=== PATIENT | female | born 1950 | race African-American/Black ===

== ENCOUNTER 2025-11-11 07:01 | Inpatient (IN) | payer OTHER, MEDICAID ==
[~2025-11-11] VITALS: Ht 170.2 cm; Wt 68.0 kg
[2025-11-11] VITALS (7 sets, daily range): BP systolic 119–172; BP diastolic 65–89; PULSE 75–89; RESP 16–19; TEMP 97.6–98.5; O2SAT 95–97
--- NOTE | 2025-11-11 07:15 | ED.PDOC ---
Musculoskeletal HPI Comments A 75 year-old female, with a Hx of HTN, presents to the ED with a chief complaint of spontaneous R hand numbness onset X4 months, since worsening. Patient states as of recently, the L hand has begun to feel numb as well. Patient reports a difficulty with gripping objects. Patient was seen at [facility] last night, and told she has Arthritis. Patient presents to the ED today for a second professional opinion. Upon arrival to the ED, patient has a BP of 220/86. Patient states she does not know what BP medication she takes, and has not taken medications in "awhile". Patient has no further complaints at this time and denies any trauma to the upper extremities, or further associated symptoms of weakness, chest pain, fatigue, fever, or palpitations. 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 History Family History Family History: Unknown Social History Smoker: Non-Smoker Alcohol: Denies ETOH Use Drugs: Denies Drug Use Lives In: Home Constitutional: denies: chills, diaphoresis, fatigue, fever, malaise, sweats, weakness, others EENTM: denies: blurred vision, double vision, ear bleeding, ear discharge, ear drainage, ear pain, ear ringing, eye pain, eye redness, hearing loss, mouth pain, mouth swelling, nasal discharge, nose bleeding, nose congestion, nose pain, photophobia, tearing, throat pain, throat swelling, voice changes, others Respiratory: denies: cough, hemoptysis, orthopnea, SOB at rest, shortness of breath, SOB with excertion, stridor, wheezing, others Cardiovascular: denies: chest pain, dizzy spells, diaphoresis, Dyspnea on exertion, edema, irregular heart beat, left arm pain, lightheadedness, palpitations, PND, syncope, others Gastrointestinal: denies: abdomen distended, abdominal pain, blood streaked bowels, constipated, diarrhea, dysphagia, difficulty swallowing, hematemesis, melena, nausea, poor appetite, poor fluid intake, rectal bleeding, rectal pain, vomiting, others Genitourinary: denies: abnormal vagina bleeding, burning, dyspareunia, dysuria, flank pain, frequency, hematuria, incontinence, pain, , vagina discharge, urgency, others Neurological: reports: numbness (Bilat Hand ); denies: dizziness, fainting, headache, left sided numbness, left sided weakness, paresthesia, pre-existing deficit, right sided numbness, right sided weakness, seizure, speech problems, tingling, tremors, weakness, others Musculoskeletal: denies: back pain, gout, joint pain, joint swelling, muscle pain, muscle stiffness, neck pain, others Integumetry: denies: bruises, change in color, change in hair/nails, dryness, laceration, lesions, lumps, rash, wounds, others Allergic/Immunocompromised: denies: Difficulty Healing, Frequent Infections, Hives, Itching, others Hematologic/Lymphatic: denies: anemia, blood clots, easy bleeding, easy bruising, swollen glands, others Endocrine: denies: excessive hunger, excessive sweating, excessive thirst, excessive urination, flushing, intolerance to cold, intolerance to heat, unexplained weight gain, unexplained weight loss, others Psychiatric: denies: anxiety, bipolar disorder, depression, hopeless, panic disorder, schizophrenia, sleepless, suicidal, others All Other Systems: Reviewed and Negative Physical Exam General Appearance: No Apparent Distress HEENT: Pharynx Normal Neck: Normal Inspection Respiratory: No Respiratory Distress Cardiovascular: No Edema Breast Exam: Deferred Gastrointestinal: No Organomegaly Genitalia: Deferred Pelvic: Deferred Rectal: Deferred Extremities: No pedal edema, Other (Weakness of the right hand) Neurologic: Normal Mood Cerebellar Function: NOT DONE Reflexes: NOT DONE Skin: Normal Color Lymphatic: NOT DONE Was a procedure done? Was a procedure done?: No Differential Diagnosis EXT Differential Diagnosis: Sprain, Arthritis X-Ray, Labs, Meds, VS Vital Signs Date Time Temp Pulse Resp B/P (MAP) Pulse Ox O2 Delivery O2 Flow Rate FiO2 11/11/25 08:19 201/87 11/11/25 07:53 73 11/11/25 07:44 75 95 Room Air* 0 21 11/11/25 07:37 97.3 80 16 213/92 (132) 95 97.3 11/11/25 07:37 78 18 Room Air 0 11/11/25 07:02 97.7 86 18 220/86 96 97.7 Lab Test 11/11/25 07:30 Range/Units White Blood Count 7.0 4.4-10.8 10^3/uL Red Blood Count 5.45 H 4.0-5.20 10^6/uL Hemoglobin 16.7 H 12.2-16.2 g/dL Hematocrit 49.7 H 36.0-46.0 % Mean Corpuscular Volume 91.3 80.0-100.0 fL Mean Corpuscular Hemoglobin 30.7 28.0-32.0 pg Mean Corpuscular Hemoglobin Concent 33.7 32.0-36.0 g/dL Red Cell Distribution Width 13.9 11.8-14.3 % Platelet Count 208 140-450 10^3/uL Mean Platelet Volume 8.1 6.9-10.8 fL Neutrophils (%) (Auto) 43.1 37.0-80.0 % Lymphocytes (%) (Auto) 44.6 10.0-50.0 % Monocytes (%) (Auto) 9.4 0.0-12.0 % Eosinophils (%) (Auto) 1.7 0.0-7.0 % Basophils (%) (Auto) 1.2 0.0-2.0 % Neutrophils # (Auto) 3.0 1.6-8.6 10 ^3/uL Lymphocytes # (Auto) 3.1 0.4-5.4 10 ^3/uL Monocytes # (Auto) 0.7 0-1.3 10 ^3/uL Eosinophils # (Auto) 0.1 0-0.8 10 ^3/uL Basophils # (Auto) 0.1 0-0.2 10 ^3/uL Nucleated Red Blood Cells 0.2 % Sodium Level 138 136-145 mmol/L Potassium Level 4.2 3.5-5.1 mmol/L Chloride Level 103 98-107 mmol/L Carbon Dioxide Level 27 20-31 mmol/L Anion Gap 8 5-15 Blood Urea Nitrogen 7 L 9-23 mg/dL Creatinine 0.73 0.550-1.02 mg/dL Glomerular Filtration Rate Calc 87 >90 mL/min BUN/Creatinine Ratio 9.6 L 10.0-20.0 Serum Glucose 134 H 74-106 mg/dL Calcium Level 9.6 8.7-10.4 mg/dL Troponin I High Sensitivity 4 </=34 ng/L B-Type Natriuretic Peptide 11.09 0-100 pg/mL Current Medications Medications (Trade) Dose Ordered Sig/Hai Route Start Time Stop Time Status Last Admin Hydralazine HCl (Apresoline Injection) 20 mg ONCE ONCE IV 11/11/25 08:00 11/11/25 08:11 DC 11/11/25 08:19 [place] [address] Ph: [phone] DIAGNOSTIC IMAGING Diagnostic Imaging Report : [id number] Signed PATIENT: MARISA STANFORD ACCT: [id number] UNIT: [id number] : 1950 LOC: ER ROOM / BED: / AGE / SEX: 75 / F ADM STATUS: REG ER SERVICE 0 ORDERING PHYSICIAN: MER FLOYD MD PROCEDURE(s): CXRP - CHEST PORTABLE REASON: htn ORDER NUMBER(s): [id number], ACCESSION NUMBER(s): [id number] CLINICAL INFORMATION: Hypertension. TECHNIQUE: Single AP portable chest radiograph was obtained. COMPARISON: None FINDINGS: Lungs: Hypoaeration of the lungs with flattening of the diaphragm, May suggest emphysematous changes. Lungs are otherwise clear. Cardiac: Heart size is within normal limits. Pulmonary vasculature: Unremarkable. Mediastinum/akilah: Moderate atherosclerotic calcification at the aortic arch. Bones: No acute osseous abnormality identified. Other: No other significant findings. IMPRESSION: 1. No evidence of acute disease in the chest. 2. Findings described above suggesting a emphysematous changes in the appropriate clinical setting. [address] [address] Ph: [phone] DIAGNOSTIC IMAGING Diagnostic Imaging Report : [id number] Signed PATIENT: MARISA STANFORD ACCT: [id number] UNIT: [id number] : 1950 LOC: ER ROOM / BED: / AGE / SEX: 75 / F ADM STATUS: REG ER SERVICE 0711 ORDERING PHYSICIAN: MER FLOYD MD PROCEDURE(s): HWOCT - HEAD WITHOUT CONTRAST REASON: htn, right hand weakness ORDER NUMBER(s): [id number], ACCESSION NUMBER(s): [id number] CLINICAL INFORMATION: Hypertension, right hand weakness. TECHNIQUE: Axial imaging was obtained through the brain without contrast. Coronal and sagittal reformatted images were obtained, reviewed, and stored. Images were reviewed in brain and bone windows. All CT scans at this medical facility are performed using dose modulation techniques as appropriate to a performed exam including the following: Automated exposure control was utilized; adjustment of the MA and/or KV according to patient size; and use of iterative reconstruction technique. CTDIvol = 53.23 mGy DLP = 852.27 mGy-cm COMPARISON: None FINDINGS: There is no acute intracranial hemorrhage. No mass effect or midline shift. The ventricles and sulci are within normal limits in size for age. Basal cisterns are patent. The calvarium is unremarkable. Paranasal sinuses and mastoid air cells are clear. IMPRESSION: No CT evidence of acute intracranial abnormality. Time of 1ST Reevaluation: 07:41 Reevaluation 1ST: Unchanged Patient Education/Counseling: Diagnosis, Treatment Family Education/Counseling: No Family Present Departure 1 Departure Time of Disposition: 08:32 (Patient presented with hypertension and symptoms concerning for hypertensive emergency. Patient is receiving iv blood pressure medications requiring intensive monitoring. Data: 1. I ordered and reviewed the result of at least 3 labs including a CBC, BMP, and Urinalysis. 2. I independently interpreted the following tests: CT Brain: Which appears benign. EKG which is Normal Sinus RhythmRisk:This patient has a high risk of morbidity due to further diagnostic testing or treatment and may suffer from an acute cardiac disorder. Workup reveals hypertensive emergency and patient should be admitted for further workup. and possible expert consultation. ) Impression: Primary Impression: Hypertensive urgency Additional Impression: Numbness of right hand Disposition: ADMITTED INPATIENT Admit to: Tele Condition: Guarded Critical Care Note Critical Care Time?: Yes Critical care comment: Concern for CVA Authorized and Performed by: Mer Floyd MD Total critical care time: Approximately 39 minutes Due to a high probability of clinically significant, life threatening deterioration, the patient required my highest level of preparedness to i ntervene emergently and I personally spent this critical care time directly and personally managing the patient. This critical care time included obtaining a history; examining the patient; pulse oximetry; ordering and review of studies; arranging urgent treatment with development of a management plan; evaluation of patient's response to treatment; frequent reassessment; and, discussions with other providers. This critical care time was performed to assess and manage the high probability of imminent, life-threatening deterioration that could result in multi-organ failure. It was exclusive of separately billable procedures and treating other patients and teaching time. Please see my other sections and the rest of the note for further information on patient assessment and treatment. Stability Stability form required: No Heart Score Heart Score: Heart Score Response (Comments) Value History N/A 0 EKG N/A 0 Age N/A 0 Risk Factors N/A 0 Troponin N/A 0 Total 0 I personally scribed for MER FLOYD MD ([email or web address]) on 11/11/25 at 07:15. Electronically submitted by Eliva Astudillo ([employer]). I personally scribed for MER FLOYD MD (GINARCO) on 11/11/25 at 07:20. Electronically submitted by Elvia Astudillo ([employer]). I personally scribed for MER FLOYD MD (GINARCO) on 11/11/25 at 07:34. Electronically submitted by Elvia Astudillo ([employer]). I personally scribed for MER FLOYD MD (GINARCO) on 11/11/25 at 08:13. Electronically submitted by Elvia Astudillo ([employer]). MER FLOYD MD Nov 11, 2025 07:15
[2025-11-11 07:41] LABS: Hematocrit 49.7 % (36.0-46.0); Hemoglobin 16.7 g/dL (12.2-16.2); Mean Corpuscular Hemoglobin 30.7 pg (28.0-32.0); Mean Corpuscular Volume 91.3 fL (80.0-100.0); Nucleated Red Blood Cells % 0.2 %
--- NOTE | 2025-11-11 07:42 | DVH ---
CLINICAL INFORMATION: Hypertension, right hand weakness. TECHNIQUE: Axial imaging was obtained through the brain without contrast. Coronal and sagittal reformatted images were obtained, reviewed, and stored. Images were reviewed in brain and bone windows. All CT scans at this medical facility are performed using dose modulation techniques as appropriate to a performed exam including the following: Automated exposure control was utilized; adjustment of the MA and/or KV according to patient size; and use of iterative reconstruction technique. CTDIvol = 53.23 mGy DLP = 852.27 mGy-cm COMPARISON: None FINDINGS: There is no acute intracranial hemorrhage. No mass effect or midline shift. The ventricles and sulci are within normal limits in size for age. Basal cisterns are patent. The calvarium is unremarkable. Paranasal sinuses and mastoid air cells are clear. IMPRESSION: No CT evidence of acute intracranial abnormality.
--- NOTE | 2025-11-11 07:43 | DVH ---
CLINICAL INFORMATION: Hypertension. TECHNIQUE: Single AP portable chest radiograph was obtained. COMPARISON: None FINDINGS: Lungs: Hypoaeration of the lungs with flattening of the diaphragm, May suggest emphysematous changes. Lungs are otherwise clear. Cardiac: Heart size is within normal limits. Pulmonary vasculature: Unremarkable. Mediastinum/akilah: Moderate atherosclerotic calcification at the aortic arch. Bones: No acute osseous abnormality identified. Other: No other significant findings. IMPRESSION: 1. No evidence of acute disease in the chest. 2. Findings described above suggesting a emphysematous changes in the appropriate clinical setting.
[2025-11-11 07:47] LABS: Chloride 103 mmol/L (98-107); Potassium 4.2 mmol/L (3.5-5.1); Sodium 138 mmol/L (136-145)
[2025-11-11 07:48] LABS: Anion Gap 8 (5-15); Carbon Dioxide 27 mmol/L (20-31)
[2025-11-11 07:49] LABS: Calcium 9.6 mg/dL (8.7-10.4)
[2025-11-11 07:53] LABS: BUN/Creatinine Ratio 9.6 (10.0-20.0)
[2025-11-11 08:07] LABS: Blood Urea Nitrogen 7 mg/dL (9-23); Glucose 134 mg/dL (74-106)
[2025-11-11] MEDS: hydrALAZINE HCL 20 MG/ML VL IV ONE (08:19)
[2025-11-11 08:41] LABS: Urine Protein, UAD Negative (Negative)
--- NOTE | 2025-11-11 08:51 | DVHHP2 ---
History of Present Illness Reason for Visit: right arm weakness History of Present Illness 75-year-old female with past medical history of hypertension, asthma, and shingles, and prior surgical history (unspecified), presents with right hand numbness that has been intermittent for 45 months. This morning, while attempting to put on items, the numbness acutely worsened, resulting in difficulty holding and grasping objects with the right hand. She also reports lower extremity weakness. She denies any recent falls or injuries, chest pain, or shortness of breath. The patient reports she has been out of her blood pressure medications for approximately five months. Per her grandson at bedside, her blood pressure at home was severely elevated to the 220s/120s. The grandson reports that the patient previously presented to [facility] around May for similar right hand weakness, underwent imaging and workup, and was discharged but never followed up with her primary care physician. In the ED, the patient received hydralazine for blood pressure control. Laboratory evaluation showed CBC unremarkable, sodium 134, and otherwise CMP unremarkable. CT scan of the head was negative. Chest X-ray was negative for acute process but showed emphysematous-type changes. The patient has a history of smoking and declines nicotine patch. Given persistent focal neurologic symptoms, uncontrolled hypertension, and concern for cervical or neurologic etiology, patient will be admitted for further neurologic evaluation, blood pressure management, and therapy assessment. Past Medical History See HPI above Past Surgical History See HPI above Family History Reviewed, non-contributory to the management of this case. Past Social History Smoker by history he states he did not meth two months ago he is currently homeless Review of Systems Constitutional: No: Fever, Chills, Sweats, Weakness, Malaise, Other Eyes: No: Pain, Vision change, Conjunctivae inflammation, Eyelid inflammation, Other, Redness ENT: No: Ear pain, Ear discharge, Nose pain, Nose discharge, Nose congestion, Mouth pain, Mouth swelling, Throat pain, Throat swelling, Other Respiratory: Shortness of breath, SOB with excertion; No: Cough, Dry, Wheezing, Hemoptysis, Pleuritic Pain, Sputum, Wheezing, Other Cardiovascular: Chest Pain; No: Palpitations, Orthopnea, Paroxysmal Noc. Dyspnea, Edema, Lt Headedness, Other Gastrointestinal: No: Nausea, Vomiting, Abdominal Pain, Diarrhea, Constipation, Melena, Hematochezia, Other Genitourinary: No Dysuria, No Frequency, No Incontinence, No Hematuria, No Retention, No Other Musculoskeletal: No: other, neck pain, shoulder pain, arm pain, back pain, hand pain, leg pain, foot pain Skin: No: Rash, Lesions, Jaundice, Bruising, Other Neurological: No: Weakness, Numbness, Incoordination, Change in speech, Confusion, Seizures, Other Allergies: Coded Allergies: Lisinopril (Verified Allergy, Unknown, 11/11/25) Exam Vital Signs Vital Signs Date Time Temp Pulse Resp B/P (MAP) Pulse Ox O2 Delivery O2 Flow Rate FiO2 11/11/25 08:19 201/87 11/11/25 07:53 73 11/11/25 07:44 95 Room Air* 0 21 11/11/25 07:37 97.3 16 97.3 General Appearance: Alert, Oriented X3, Cooperative, mild distress HEENT: Atraumatic, PERRLA, EOMI, Mucous membr. moist/pink Respiratory: Normal air movement (lung sounds throughout) Cardiovascular: Regular rate, Normal S1, Normal S2, No murmurs Abdominal: Normal bowel sounds, Soft, No tenderness, No hepatospenomegaly, No masses Extremities: No clubbing, No cyanosis, No edema, Normal pulses, No tenderness/swelling Skin: No rashes, No breakdown, No significant lesion Neuro: Normal gait, Normal speech, Strength at 5/5 X4 ext, Normal tone, Sensation intact, Cranial nerves 3-12 NL Psych/Mental Status: Mental status NL, Mood NL Labs/Xrays Chest x-ray shows opacities mild lower lobe infiltrates I reviewed labs, imaging CT scan abdomen pelvis, EKG and all diagnostic studies on this patient from ED records and the medical chart Labs Test 11/11/25 08:32 11/11/25 07:56 11/11/25 07:30 Range/Units White Blood Count 7.0 4.4-10.8 10^3/uL Red Blood Count 5.45 H 4.0-5.20 10^6/uL Hemoglobin 16.7 H 12.2-16.2 g/dL Hematocrit 49.7 H 36.0-46.0 % Mean Corpuscular Volume 91.3 80.0-100.0 fL Mean Corpuscular Hemoglobin 30.7 28.0-32.0 pg Mean Corpuscular Hemoglobin Concent 33.7 32.0-36.0 g/dL Red Cell Distribution Width 13.9 11.8-14.3 % Platelet Count 208 140-450 10^3/uL Mean Platelet Volume 8.1 6.9-10.8 fL Neutrophils (%) (Auto) 43.1 37.0-80.0 % Lymphocytes (%) (Auto) 44.6 10.0-50.0 % Monocytes (%) (Auto) 9.4 0.0-12.0 % Eosinophils (%) (Auto) 1.7 0.0-7.0 % Basophils (%) (Auto) 1.2 0.0-2.0 % Neutrophils # (Auto) 3.0 1.6-8.6 10 ^3/uL Lymphocytes # (Auto) 3.1 0.4-5.4 10 ^3/uL Monocytes # (Auto) 0.7 0-1.3 10 ^3/uL Eosinophils # (Auto) 0.1 0-0.8 10 ^3/uL Basophils # (Auto) 0.1 0-0.2 10 ^3/uL Nucleated Red Blood Cells 0.2 % Sodium Level 138 136-145 mmol/L Potassium Level 4.2 3.5-5.1 mmol/L Chloride Level 103 98-107 mmol/L Carbon Dioxide Level 27 20-31 mmol/L Anion Gap 8 5-15 Blood Urea Nitrogen 7 L 9-23 mg/dL Creatinine 0.73 0.550-1.02 mg/dL Glomerular Filtration Rate Calc 87 >90 mL/min BUN/Creatinine Ratio 9.6 L 10.0-20.0 Serum Glucose 134 H 74-106 mg/dL Calcium Level 9.6 8.7-10.4 mg/dL B-Type Natriuretic Peptide 11.09 0-100 pg/mL SEPSIS Sepsis Screen Date sepsis recognized/suspect: Nov 11, 2025 Time Sepsis recognized/suspect: 0749 Recent Procedure: No On Antibiotic Therapy: No Respiratory Rate >20: No Heart Rate >90: No Temp<36 C (96.8 F) or >38.3 C: No SBP <90 or MAP <65 mmHG: No New Acute Mental Status Change: No Is the patient on CPAP, BIPAP,: No Physician Orders Urinalysis (11/11/25 07:11) Chest Portable (11/11/25 07:11) Head Without Contrast (11/11/25 07:11) Electrocardigram (11/11/25 07:11) Troponin-I Hs (11/11/25 08:11) Troponin-I Hs (11/11/25 10:11) Electrocardigram (11/11/25 08:11) Electrocardigram (11/11/25 10:11) Vital Signs Date Time Temp Pulse Resp B/P (MAP) Pulse Ox O2 Delivery O2 Flow Rate FiO2 11/11/25 08:19 201/87 11/11/25 07:53 73 11/11/25 07:44 75 95 Room Air* 0 21 11/11/25 07:37 97.3 80 16 213/92 (132) 95 97.3 11/11/25 07:37 78 18 Room Air 0 11/11/25 07:02 97.7 86 18 220/86 96 97.7 Laboratory Tests Test 11/11/25 07:30 White Blood Count 7.0 10^3/uL (4.4-10.8) Medications Medications Dose Ordered Sig/Hai Route Start Time Stop Time Status Last Admin Dose Admin Hydralazine HCl 20 mg ONCE ONCE IV 11/11/25 08:00 11/11/25 08:11 DC 11/11/25 08:19 20 MG Assessment/Plan Assessment/Plan 75-year-old female admitted for worsening right hand numbness and weakness in the setting of uncontrolled hypertension, with concern for neurologic or cervical spine etiology, requiring inpatient workup, blood pressure control, and specialty consultation. acute Right hand numbness and weakness Symptoms present intermittently for 45 months, acutely worsened today CT head negative Order CT cervical spine Neurology consult fu recs Start gabapentin for neuropathic pain Neuro checks q4h for now Uncontrolled hypertension / hypertensive urgency Off BP medications for 5 months Home BP reportedly 220s/120s Hydralazine given in ED ordered cozaar for now Monitor BP closely acute Lower extremity weakness No fall or trauma Physical therapy consult for evaluation and safety acute Asthma / COPD exacerbation Chest X-ray shows emphysematous changes Start scheduled bronchodilator treatments Systemic steroids Monitor respiratory status Tobacco use Patient is a smoker Declines nicotine patch History of shingles No active lesions chronic problems Hypertension Asthma Possible COPD/emphysema History of shingles Tobacco use FEN / PPx Fluids: Maintain hydration Electrolytes: Monitor BMP Nutrition: Regular diet as tolerated DVT Prophylaxis: SCDs GI Prophylaxis: PPI while on steroids Disposition Admit to medicine for neurologic workup of right hand numbness/weakness, CT cervical spine, neurology consultation, blood pressure control, respiratory treatments for asthma/COPD flare, and physical therapy evaluation. Continue monitoring and adjust management based on product development consultant recommendations. Plan discussed with: Patient Date of Service: Nov 11, 2025 Billing Provider: MARY ALICE DE LA GARZA DNP Common Visit Codes: [id number] INP/OBS CARE (HIGH) MARY ALICE DE LA GARZA DNP Nov 11, 2025 08:51
[2025-11-11] MEDS ORDERED: MORPHINE SULFATE INJ 2 MG/ml SYRG IV PRN (10:30)
[2025-11-11] MEDS ORDERED: ALBUTEROL SULF 2.5 MG/0.5ML(0.5%) NEB SOLN NEB ONE (10:30)
[2025-11-11] MEDS ORDERED: DOCUSATE SOD 100 MG CAP PO PRN (10:30)
[2025-11-11] MEDS ORDERED: NITROGLYCERIN 0.4 MG SL TAB SL PRN (10:30)
[2025-11-11] MEDS ORDERED: ONDANSETRON HCL 4 MG/2 ML VIAL IV PRN (10:30)
[2025-11-11] MEDS ORDERED: IPRATROPIUM BROM 0.5 MG/2.5ML INH SOL NEB ONE (10:30)
[2025-11-11] MEDS: PANTOPRAZOLE 40 MG/10 ML VIAL INJ IV ONE (11:18)
[2025-11-11] MEDS: SODIUM CHLORIDE 0.9% 1,000 ML IV SCH (11:18)
--- NOTE | 2025-11-11 11:32 | DVH ---
EXAM: CT CERVICAL WITHOUT CONTRAST INDICATION: eval for right upper ext numbness and tingling EXAM DATE: 11/11/2025 10:54 AM COMPARISON: None TECHNIQUE: Multiple axial CT images of the cervical spine were obtained using bone algorithm. Axial and coronal reformatting was done. Bone and soft tissue windows were reviewed. Radiation Dose Information: CT Dose: CTDI volume is 23.39 mGy. Dose-length product is 444.69 mGy*cm FINDINGS: The cervical alignment is intact. No acute cervical spine fracture is identified. The vertebral body heights are intact. No suspicious osseous lesions are identified. Moderate multilevel degenerative changes throughout the cervical spine. There is no prevertebral soft tissue swelling. IMPRESSION: 1. No evidence of acute cervical spine fracture or traumatic malalignment. 2. Moderate multilevel degenerative changes throughout the cervical spine. Consider correlation with cervical spine MRI. All CT scans at this medical facility are performed using dose modulation techniques as appropriate to a performed exam including the following: Automated exposure control was utilized; adjustment of the MA and/or KV according to patient size; and use of iterative reconstruction technique.
[2025-11-11] MEDS ORDERED: IPRATROPIUM BROM 0.5 MG/2.5ML INH SOL NEB SCH (14:00)
[2025-11-11] MEDS ORDERED: ALBUTEROL SULF 2.5 MG/0.5ML(0.5%) NEB SOLN NEB SCH (14:00)
[2025-11-11] MEDS: methylPREDNISolone SOD SUCC 40 MG/ML VL IV SCH (14:31)
[2025-11-11] MEDS: LOSARTAN POTASSIUM 25 MG TAB PO ONE (17:05)
[2025-11-11] MEDS: hydroCHLOROthiazide 25 MG TAB PO ONE (17:06)
[2025-11-11] MEDS: GABAPENTIN 300 MG CAP PO SCH (21:34)
[2025-11-12] VITALS (10 sets, daily range): BP systolic 143–173; BP diastolic 69–76; PULSE 62–96; RESP 16–18; TEMP 97.4–98.7; O2SAT 94–99
[2025-11-12] MEDS: hydrALAZINE HCL 20 MG/ML VL IV PRN (05:37)
[2025-11-12 06:14] LABS: Hematocrit 48.2 % (36.0-46.0); Hemoglobin 16.3 g/dL (12.2-16.2); Mean Corpuscular Hemoglobin 30.8 pg (28.0-32.0); Mean Corpuscular Volume 91.1 fL (80.0-100.0); Nucleated Red Blood Cells % 0.1 %
[2025-11-12 06:29] LABS: Alanine Aminotransferase 17 U/L (7-40); Albumin 4.2 g/dL (3.2-4.8); Alkaline Phosphatase 72 U/L (46-116); Anion Gap 10 (5-15); BUN/Creatinine Ratio 12.2 (10.0-20.0); Calcium 9.7 mg/dL (8.7-10.4); Carbon Dioxide 26 mmol/L (20-31); Chloride 101 mmol/L (98-107); Potassium 4.1 mmol/L (3.5-5.1); Sodium 137 mmol/L (136-145); Total Protein 7.6 g/dL (5.7-8.2)
[2025-11-12 06:30] LABS: Bilirubin, Total 0.5 mg/dL (0.2-1.0); Blood Urea Nitrogen 9 mg/dL (9-23); Glucose 179 mg/dL (74-106)
[2025-11-12] MEDS: LOSARTAN POTASSIUM 25 MG TAB PO SCH (10:26)
[2025-11-12] MEDS: hydroCHLOROthiazide 25 MG TAB PO SCH (10:26)
[2025-11-12] MEDS: ACETAMINOPHEN 325 MG TAB PO ONE (10:27)
[2025-11-12] MEDS: ENOXAPARIN SOD 40 MG/0.4 ML SYRINGE SC SCH (10:27)
[2025-11-12] MEDS: PANTOPRAZOLE 40 MG/10 ML VIAL INJ IV SCH (10:27)
[2025-11-12] MEDS ORDERED: IPRATROPIUM BROM 0.5 MG/2.5ML INH SOL NEB SCH (12:15)
[2025-11-12] MEDS ORDERED: AZITHROMYCIN 250 MG TAB PO ONE (12:15)
--- NOTE | 2025-11-12 12:36 | DVHPNRES ---
Progress Note Date Seen: Nov 12, 2025 Resident Creating Document: HAKAN RUBALCAVA RESIDENT Medical Necessity Reason Pt with a Central, PICC or Fol: No Subjective Review of Systems Patient is 75 years old female with a past medical history of hypertension, COPD, not on any oxygen, asthma, shingles came with a complaint of tingling and numbness that has been going on for more than 1 week. As per patient yesterday she had dropped staff from her hand. Now she is also feeling numbness in the left upper extremity. Patient reported her blood pressure at home with the 220/120s. Patient reported she was not taking blood pressure medication regularly. On further inquiry patient reported she has chronic cough and wheezing due to COPD. Patient denied any chest pain/dysarthria/change in vision/dysphagia, fever, palpitation/leg swelling. On arrival patient's blood pressure was 220/86. EKG no acute ST-T wave changes, troponin I with a normal limit, BNP with a normal limit, urinalysis negative, chest x-ray blood draw from bilaterally, CT head negative, PMH-hypertension, COPD, not on any oxygen, asthma, shingles PSH- cyst in the back surgery Allergy- lisinopril Personal History/ Social History- smoke half a pack of cigarettes almost for 50 years, occasional alcoholic, denies any substance abuse, lives with son Cardiovascular- deny acute chest pain or palpitation Respiratory chronic cough and wheezing Gastrointestinal- denies any rectal bleeding, nausea or vomiting Musculoskeletal-denies acute joint swelling or tenderness or redness Neurological- bilateral upper extremity numbness Psychiatry- denies depression or SI or HI Skin- denies acute rash or purpura Patient was seen today at bedside, Labs and chart reviewed CT head negative Ordered ceftriaxone and doxycycline EKG QTC prolongation New changes in the EKG, ordered troponin I, ordered cardiology consult Ordered echo 2D LVEF 65%, No neurological deficit noted on physical exam Ordered x-ray cervical spine rule out cervical spondylosis/fracture Plan is to do outpatient MRI of cervical spine to rule out radiculopathy Objective vital signs Vital Sign Date Time Temp Pulse Resp B/P (MAP) Pulse Ox O2 Delivery O2 Flow Rate FiO2 11/12/25 10:26 159/73 11/12/25 09:00 97.8 62 18 95 97.8 11/12/25 08:00 Nasal Cannula* 2 28 Total Intake and Output 11/11/25 11/11/25 11/12/25 15:00 23:00 07:00 Intake Total 210 ml 650 ml 500 ml Balance 210 ml 650 ml 500 ml medications Current Medications Medications Dose Ordered Sig/Hai Route Start Time Stop Time Status Last Admin Dose Admin Ondansetron HCl 4 mg Q4HP PRN IV 11/11/25 10:30 Docusate Sodium 100 mg BIDPRN PRN PO 11/11/25 10:30 Enoxaparin Sodium 40 mg DAILY SC 11/12/25 10:00 11/12/25 10:27 40 MG Morphine Sulfate 2 mg Q4HPRN PRN IV 11/11/25 10:30 Nitroglycerin 0.4 mg Q5MINP PRN SL 11/11/25 10:30 Albuterol 2.5 mg Q4HR NEB 11/11/25 14:00 UNV Ipratropium [place] 0.5 mg Q4HR NEB 11/11/25 14:00 UNV Methylprednisolone Sodium Succinate 40 mg Q8HR IV 11/11/25 14:00 11/12/25 05:36 40 MG Pantoprazole Sodium 40 mg DAILY IV 11/12/25 10:00 11/12/25 10:27 40 MG Gabapentin 300 mg BID PO 11/11/25 22:00 11/12/25 10:27 300 MG Losartan Potassium 25 mg DAILY PO 11/12/25 10:00 11/12/25 10:26 25 MG Hydralazine HCl 10 mg Q6HP PRN IV 11/11/25 16:45 11/12/25 05:37 10 MG Ceftriaxone Sodium 50 ml @ 100 mls/hr DAILY@09 IV 11/12/25 12:15 Azithromycin 250 mg DAILY PO 11/13/25 10:00 Albuterol 2.5 mg Q6HR NEB 11/12/25 18:00 Amlodipine Besylate 5 mg DAILY PO 11/12/25 12:15 Ipratropium [place] 0.5 mg Q6HR NEB 11/12/25 18:00 Examination General examination- awake, alert, ordered HEENT- PEERLA, no acute nasal discharge Cardiovascular- S1-S2 audible, rate and rhythm regular, no murmur Respiratory- bilateral congested lungs, wheezing+ Gastrointestinal-nontender, bowel sound+. Nondistended Musculoskeletal-no acute joint swelling or tenderness or redness Lower extremity- no leg edema Neurological- cranial nerves intact, no acute dysarthria or dysphagia Psychiatry- denies depression or SI or HI Skin- no acute rash or purpura laboratory and microbiology Laboratory Tests 11/12/25 05:31 Test 11/12/25 05:31 Range/Units Serum Glucose 179 H 74-106 mg/dL Problem List/Assessment/Plan Problem List/Assessment/Plan Assessment and plan # bilateral upper extremity tingling and numbness Rule out acute stroke Suspected cervical radiculopathy/myelopathy -CT head negative -plan is to do MRI of the cervical spine to rule out cervical radiculopathy -Echo 2D LVEF 65% Ordered x-ray cervical spine to rule out spondylosis/fracture -plan is to do outpatient MRI of the cervical spine to rule out cervical radiculopathy # acute exacerbation of COPD -chest x-ray low-fat diaphragm -troponin I within normal limit so far -continue nebulization as prescribed -ordered methylprednisolone -ordered ceftriaxone and doxycycline # leukocytosis -likely due to steroid # hypertensive emergency -ordered amlodipine -continue losartan -monitor blood pressure # new onset change in EKG -ordered repeat troponin panel -ordered cardiology consult -pending echo 2D Goals of care, Code status full code ; discussed with >15 minutes PUD prophylaxis: Pantoprazole DVT prophylaxis: Lovenox Plan discussed with Dr. Glynn nursing staff, Total time spent on patient evaluation, chart review, assessment and plan, discussion discussion >35 minutes Plan discussed with: Patient, Other (RN) My Orders My Orders Orders - HAKAN RUBALCAVA RESIDENT Procedure Category Date Status Time Electrocardigram EKG 11/12/25 Logged 12:03 Ceftriaxone 1gm/50ml PHA 11/12/25 In Process (Rocephin) 12:15 Azithromycin Tablet PHA 11/13/25 In Process (Zithromax Tablet) 10:00 Albuterol Medneb PHA 11/12/25 In Process (Ventolin Medneb) 18:00 Amlodipine Tablet PHA 11/12/25 In Process (Norvasc Tablet) 12:15 Ipratropium Medneb PHA 11/12/25 In Process (Atrovent Medneb) 18:00 Visit Coding STANDARD RES Billing Provider: MEENU GLYNN MD Date of Service if different f: Nov 12, 2025 Common Visit Codes: 97322-IADSCMLNND INP/OBS CARE(HIGH) HAKAN RUBALCAVA RESIDENT Nov 12, 2025 12:36
[2025-11-12] MEDS: DOXYCYCLINE 100MG/100ML 100 ML IV SCH (13:53)
--- NOTE | 2025-11-12 17:58 | DVHSR ---
APPROVED REPORT EXAM: Two-dimensional and M-mode echocardiogram with Doppler and color Doppler. Blood Pressure: 165/74 mmHg INDICATION ?CHF RISK FACTORS Height: 5'7", Weight: 154 DIMENSIONS LVDd (3.8-5.7cm) LA (2D) 3.7 (1.9-4.0cm) Aortic Root (2.0-3.7cm) EF (%) 60.0 (55-70%) Rt. Atrium 3.2 (1.9-4.0cm) Asc. Aorta cm Mitral Valve Mitral Mitral Stenosis E wave 0.95m/s MV Mean GR. 3mmHg A wave 1.59m/s MV Peak GR. 9mmHg E/A ratio 0.6 2D MVA cm2 DECEL Time 168ms PRESS 1/2 Time 98ms IVRT ms Dop MVA 2.24cm2 Aortic Valve Aortic Valve Aortic Stenosis V1 1.17m/s AO Mean GR. 6mmHg V2 1.75m/s AO Peak GR. 12mmHg LVOT Diameter 1.8 (1.8-2.4cm) Doppler JEREMY 1.70cm2 Other Information Quality : Technically Limited Rhythm : Technically limited study due to body habitus. Conclusion MILD LVH AND MILD LV DIASTOLIC DYSFUNCTION LV EF IS 65% POSTERIOR MITRAL LEAFLET IS CALCIFIED CALCIFIED AORTIC LEAFLETS NORMAL RV FUNCTION NO EFFUSION
--- NOTE | 2025-11-12 18:31 | DVH ---
CLINICAL INDICATION: Spondylosis/radiculopathy/fracture TECHNIQUE: 4 radiographic views of the cervical spine were obtained. COMPARISON: None FINDINGS/IMPRESSION: Lateral film demonstrates C1 through C5. There are no compressed vertebra and. The prevertebral soft tissues appear normal. There appears to be some straightening of the normal cervical lordotic curve C1 through C5 is may be secondary to patient positioning or muscle spasm. If vertebral detail below C5 is of clinical concern recommend CT of the cervical spine. There is 1 additional image of the cervical spine which shows satisfactory alignment however image is severely rotated and bony detail is limited.
[2025-11-12] MEDS: ALBUTEROL SULF 2.5 MG/0.5ML(0.5%) NEB SOLN NEB SCH (19:00)
[2025-11-12] MEDS: IPRATROPIUM BROM 0.5 MG/2.5ML INH SOL NEB SCH (19:01)
--- NOTE | 2025-11-12 21:03 | ECG ---
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
--- NOTE | 2025-11-12 22:38 | DVHINCON2 ---
Date of service: Nov 12, 2025 Referring Physician Maribel Reason for Consultation Acute upper arm numbness and tingling History of Present Illness Ms. Cabrales is a 75 years old right-handed female with a history of hypertension, she came to the hospital on 11/11/2025 with a chief complaint of paresthesia in the extremities, she was admitted because of her blood pressure was very high. At this time, he is alert and fully oriented, she provided the following history She has intermittent tingling, numbness, pain in the whole hand and all the fingers since 06/2025, the symptoms are worse after using the hand, or showering her head, she also drops objects from hand, but she denies weakness She has intermittent tingling, numbness in the whole hand and all the fingers since the end of 09/2025, the symptoms are worse after using the hand Her blood pressure was extremely high in the emergency room, but she denies acute vision changes, she did not have but had headache after he came to the hospital WBC/HB/PLT/MCV, 11/11/2025: 7/16.7/208/95.3 BMP 11/12/2025: Unremarkable HGB A1c, 11/12/2025: 6.8 TSH, 11/12/2025: 0.29 Liver function tests, 09/12/2025: Unremarkable CT head, 11/11/2025: No CT evidence of acute intracranial abnormality CT C-spine, 11/11/25:1. No evidence of acute cervical spine fracture or tra umatic malalignment. 2. Moderate multilevel degenerative changes throughout the cervical spine. Consider correlation with cervical spine MRI Past Medical History Hypertension Past Surgical History Cyst resection from the back Family History: Patient reports no known family medical history. Family History Cancer Social History She smokes, but denies a history of drug/alcohol abuse Allergies: Coded Allergies: Lisinopril (Verified Allergy, Unknown, 11/11/25) Home Meds Unable to Obtain Active Prescriptions or Reported Meds Current Medications Current Medications Medications (Trade) Dose Ordered Sig/Hai Route PRN Reason Start Time Stop Time Status Last Admin Enoxaparin Sodium (Lovenox) 40 mg DAILY SC 11/12/25 10:00 11/12/25 10:27 Pantoprazole Sodium (Protonix) 40 mg DAILY IV 11/12/25 10:00 11/12/25 10:27 Losartan Potassium (Cozaar Tablet) 25 mg DAILY PO 11/12/25 10:00 11/12/25 10:26 Hydrochlorothiazide (hydroCHLOROthiazide TABLET) 12.5 mg DAILY PO 11/12/25 10:00 11/12/25 12:11 DC 11/12/25 10:26 Ceftriaxone Sodium 50 ml @ 100 mls/hr DAILY@09 IV 11/12/25 12:15 11/12/25 13:03 Azithromycin (Zithromax Tablet) 250 mg DAILY PO 11/13/25 10:00 11/12/25 12:41 DC Albuterol (Ventolin Medneb) 2.5 mg Q6HR NEB 11/12/25 18:00 11/12/25 19:00 Ipratropium [place] (Atrovent Medneb) 0.5 mg Q6HR NEB 11/12/25 12:15 11/12/25 12:17 DC Amlodipine Besylate (Norvasc Tablet) 5 mg DAILY PO 11/12/25 12:15 11/12/25 13:01 Ipratropium [place] (Atrovent Medneb) 0.5 mg Q6HR NEB 11/12/25 18:00 11/12/25 19:01 Doxycycline Hyclate 100 ml @ 50 mls/hr Q12H IV 11/12/25 12:30 11/12/25 13:53 Review of Systems As above, the other systems are negative Vital Signs Vital Signs Date Time Temp Pulse Resp B/P (MAP) Pulse Ox O2 Delivery O2 Flow Rate FiO2 11/12/25 21:00 98.3 89 16 143/76 (98) 96 98.3 11/12/25 20:00 Nasal Cannula* 2 28 Physical Exam GENERAL EXAM: General: the patient is well developed and nourished. No acute distress. HEENT: Normocephalic, neck is supple, no carotid bruits. No mass. RESPIRATORY: Normal respiratory effort with symmetrical lung expansion. Lungs clear to auscultation. CARDIOVASCULAR: Regular rate and rhythm with no murmurs. S1, S2. ABDOMEN: Soft, nontender, normal bowel sound MUSCULOSKELETAL EXAM: Tenderness to palpation in the left shoulder. No tenderness to palpation in the cervical spine. Very mild tenderness to palpation in both wrists NEUROLOGICAL: MENTAL STATUS: Awake and alert. Oriented to person, place, time and general circumstances. Able to give personal history SPEECH, LANGUAGE, HIGHER CORTICAL FUNCTION: no aphasia or dysathria. CRANIAL NERVES: #2: Intact visual gaytan to confrontation. The optic discs were sharp. #3,4,6: Pupils are equal, round and reactive. EOMs full and conjugate. #5: Facial sensation intact in all three divisions bilaterally. Mandibular strength intact. #7: Facial muscles symmetrical and strength intact. #8: Hearing grossly normal to voice. #9,10: Uvula and soft palate rise in the midline. Swallow and voice are normal. #11: Trapezius and sternomastoid strength intact bilaterally. #12: Tongue midline. No fasciculations or atrophy. SENSATION: Sensation to touch and pinprick is normal. MOTOR: Normal tone in the upper and lower extremity. Normal muscle bulk. No fasciculations. No abnormal movements or posturing. Muscle strength of the major groups in the upper extremities is 5/5. Muscle strength of the major groups in the lower extremities is 5/5. REFLEXES: Deep tendon reflexes are symmetrical. No pathological reflexes. CEREBELLAR/COORDINATION: Finger to nose and heel to miranda are normal bilaterally. GAIT/STATION: deferred. No Tinel's in the wrists and elbows Labs/Diagnostic Data Labs Test 11/12/25 17:45 11/12/25 06:51 11/12/25 05:51 11/12/25 05:31 Range/Units Troponin I High Sensitivity 9 </=34 ng/L White Blood Count 13.9 #H 4.4-10.8 10^3/uL Red Blood Count 5.29 H 4.0-5.20 10^6/uL Hemoglobin 16.3 H 12.2-16.2 g/dL Hematocrit 48.2 H 36.0-46.0 % Mean Corpuscular Volume 91.1 80.0-100.0 fL Mean Corpuscular Hemoglobin 30.8 28.0-32.0 pg Mean Corpuscular Hemoglobin Concent 33.8 32.0-36.0 g/dL Red Cell Distribution Width 13.5 11.8-14.3 % Platelet Count 240 140-450 10^3/uL Mean Platelet Volume 8.1 6.9-10.8 fL Neutrophils (%) (Auto) 84.1 H 37.0-80.0 % Lymphocytes (%) (Auto) 13.3 10.0-50.0 % Monocytes (%) (Auto) 2.4 0.0-12.0 % Eosinophils (%) (Auto) 0.0 0.0-7.0 % Basophils (%) (Auto) 0.2 0.0-2.0 % Neutrophils # (Auto) 11.7 H 1.6-8.6 10 ^3/uL Lymphocytes # (Auto) 1.8 0.4-5.4 10 ^3/uL Monocytes # (Auto) 0.3 0-1.3 10 ^3/uL Eosinophils # (Auto) 0 0-0.8 10 ^3/uL Basophils # (Auto) 0 0-0.2 10 ^3/uL Nucleated Red Blood Cells 0.1 % Sodium Level 137 136-145 mmol/L Potassium Level 4.1 3.5-5.1 mmol/L Chloride Level 101 98-107 mmol/L Carbon Dioxide Level 26 20-31 mmol/L Anion Gap 10 5-15 Blood Urea Nitrogen 9 9-23 mg/dL Creatinine 0.74 0.550-1.02 mg/dL Glomerular Filtration Rate Calc 85 >90 mL/min BUN/Creatinine Ratio 12.2 10.0-20.0 Serum Glucose 179 H 74-106 mg/dL Hemoglobin A1c 6.8 H <5.7 % A1C Calcium Level 9.7 8.7-10.4 mg/dL Magnesium Level 2.1 1.6-2.6 mg/dL Total Bilirubin 0.5 0.2-1.0 mg/dL Aspartate Amino Transferase (AST) 15 13-40 U/L Alanine Aminotransferase (ALT) 17 7-40 U/L Alkaline Phosphatase 72 46-116 U/L Total Protein 7.6 5.7-8.2 g/dL Albumin 4.2 3.2-4.8 g/dL Thyroid Stimulating Hormone (TSH) 0.29 L 0.55-4.78 uIU/mL Test 11/11/25 07:56 11/11/25 07:30 Range/Units Urine Color Light-yellow Yellow Urine Clarity Clear Clear Urine pH 5.5 5.0-9.0 Urine Specific [place]une 1.014 1.001-1.035 Urine Protein Negative Negative Urine Ketones Negative Negative Urine Blood Negative Negative /uL Urine Nitrite Negative Negative Urine Bilirubin Negative Negative Urine Urobilinogen Normal Negative mg/dL Urine Leukocyte Esterase Negative Negative /uL Urine RBC None seen 0 - 4 /hpf Urine Microscopic WBC < 1 0-5 /HPF Urine Squamous Epithelial Cells Few <5 /hpf Urine Bacteria None seen None Seen /hpf Urine Glucose Normal Normal mg/dL B-Type Natriuretic Peptide 11.09 0-100 pg/mL Assessment Paresthesia in both hands, likely she has bilateral carpal tunnel syndrome Hypertension emergency Plan/Recommendation Monitoring Supportive treatment Med surge Blood pressure control Address her bilateral hand paresthesia as outpatient Follow up with me on discharge More recommendation per clinical course This medical document was created using an electronic medical record system with [employer] dictation system. Although this document has been carefully reviewed, there may still be some phonetic and typographical errors. These areas are purely typographical due to imperfections of the software programs, and do not reflect any compromise in the patient's medical care. Plan discussed with: Patient, Other IVÁN AVILA MD Nov 12, 2025 22:38
--- NOTE | 2025-11-12 23:34 | DVHINCON2 ---
Date of service: Nov 12, 2025 Referring Physician Kasia Reason for Consultation HTN, EKG changes History of Present Illness This is a 75-year-old female with a past medical history of hypertension, asthma, and shingles, and prior surgical history (unspecified) who presents to the ED with right hand numbness that has been intermittent for 45 months. This morning, while attempting to put on items, the numbness acutely worsened, resulting in difficulty holding and grasping objects with the right hand. She also reports lower extremity weakness. She denies any recent falls or injuries, chest pain, or shortness of breath. The patient reports she has been out of her blood pressure medications for approximately five months. Per her grandson at bedside, her blood pressure at home was severely elevated to the 220s/120s. The grandson reports that the patient previously presented to [facility] around May for similar right hand weakness, underwent imaging and workup, and was discharged but never followed up with her primary care physician. CBC unremarkable. CT scan of the head was negative. Chest x-ray was negative for acute process but showed emphysematous-type changes. Patient was admitted to the hospital. I am asked to consult on this patient. Family History: Patient reports no known family medical history. Allergies: Coded Allergies: Lisinopril (Verified Allergy, Unknown, 11/11/25) Home Meds Unable to Obtain Active Prescriptions or Reported Meds Current Medications Current Medications Medications (Trade) Dose Ordered Sig/Hai Route PRN Reason Start Time Stop Time Status Last Admin Enoxaparin Sodium (Lovenox) 40 mg DAILY SC 11/12/25 10:00 11/12/25 10:27 Pantoprazole Sodium (Protonix) 40 mg DAILY IV 11/12/25 10:00 11/12/25 10:27 Losartan Potassium (Cozaar Tablet) 25 mg DAILY PO 11/12/25 10:00 11/12/25 10:26 Hydrochlorothiazide (hydroCHLOROthiazide TABLET) 12.5 mg DAILY PO 11/12/25 10:00 11/12/25 12:11 DC 11/12/25 10:26 Ceftriaxone Sodium 50 ml @ 100 mls/hr DAILY@09 IV 11/12/25 12:15 11/12/25 13:03 Azithromycin (Zithromax Tablet) 250 mg DAILY PO 11/13/25 10:00 11/12/25 12:41 DC Albuterol (Ventolin Medneb) 2.5 mg Q6HR NEB 11/12/25 18:00 11/12/25 19:00 Ipratropium [place] (Atrovent Medneb) 0.5 mg Q6HR NEB 11/12/25 12:15 11/12/25 12:17 DC Amlodipine Besylate (Norvasc Tablet) 5 mg DAILY PO 11/12/25 12:15 11/12/25 13:01 Ipratropium [place] (Atrovent Medneb) 0.5 mg Q6HR [facility] 11/12/25 18:00 11/12/25 19:01 Doxycycline Hyclate 100 ml @ 50 mls/hr Q12H IV 11/12/25 12:30 11/12/25 13:53 Review of Systems Constitutional: denies: chills, diaphoresis, fatigue, fever, malaise, sweats, weakness, others EENTM: denies: blurred vision, double vision, ear bleeding, ear discharge, ear drainage, ear pain, ear ringing, eye pain, eye redness, hearing loss, mouth pain, mouth swelling, nasal discharge, nose bleeding, nose congestion, nose pain, photophobia, tearing, throat pain, throat swelling, voice changes, others Respiratory: denies: cough, hemoptysis, orthopnea, SOB at rest, shortness of breath, SOB with excertion, stridor, wheezing, others Cardiovascular: denies: chest pain, dizzy spells, diaphoresis, Dyspnea on exertion, edema, irregular heart beat, left arm pain, lightheadedness, palpitat ions, PND, syncope, others Gastrointestinal: denies: abdomen distended, abdominal pain, blood streaked bow els, constipated, diarrhea, dysphagia, difficulty swallowing, hematemesis, melena, nausea, poor appetite, poor fluid intake, rectal bleeding, rectal pain, vomiting, others Genitourinary: denies: abnormal vagina bleeding, burning, dyspareunia, dysuria, flank pain, frequency, hematuria, incontinence, pain, , vagina discharge, urgency, others Neurological: reports: numbness (Bilat Hand ); denies: dizziness, fainting, headache, left sided numbness, left sided weakness, paresthesia, pre-existing deficit, right sided numbness, right sided weakness, seizure, speech problems, tingling, tremors, weakness, others Musculoskeletal: denies: back pain, gout, joint pain, joint swelling, muscle pain, muscle stiffness, neck pain, others Integumetry: denies: bruises, change in color, change in hair/nails, dryness, laceration, lesions, lumps, rash, wounds, others Allergic/Immunocompromised: denies: Difficulty Healing, Frequent Infections, Hives, Itching, others Hematologic/Lymphatic: denies: anemia, blood clots, easy bleeding, easy bruising, swollen glands, others Endocrine: denies: excessive hunger, excessive sweating, excessive thirst, excessive urination, flushing, intolerance to cold, intolerance to heat, unexplained weight gain, unexplained weight loss, others Psychiatric: denies: anxiety, bipolar disorder, depression, hopeless, panic disorder, schizophrenia, sleepless, suicidal, others All Other Systems: Reviewed and Negative Vital Signs Vital Signs Date Time Temp Pulse Resp B/P (MAP) Pulse Ox O2 Delivery O2 Flow Rate FiO2 11/12/25 21:00 98.3 89 16 143/76 (98) 96 98.3 11/12/25 20:00 Nasal Cannula* 2 28 Physical Exam GENERAL: Alert and oriented x 3. No acute distress. EYES: PERRL, EOMI. Anicteric. HENT: Moist mucous membranes. LUNGS: Clear to auscultation bilaterally. CARDIOVASCULAR: Regular rate and rhythm. ABDOMEN: Soft, nontender and nondistended. EXTREMITIES: No edema. NEUROLOGIC: No focal neurological deficits. SKIN: Warm, dry. Labs/Diagnostic Data Labs Test 11/12/25 17:45 11/12/25 06:51 11/12/25 05:51 11/12/25 05:31 Range/Units Troponin I High Sensitivity 9 </=34 ng/L White Blood Count 13.9 #H 4.4-10.8 10^3/uL Red Blood Count 5.29 H 4.0-5.20 10^6/uL Hemoglobin 16.3 H 12.2-16.2 g/dL Hematocrit 48.2 H 36.0-46.0 % Mean Corpuscular Volume 91.1 80.0-100.0 fL Mean Corpuscular Hemoglobin 30.8 28.0-32.0 pg Mean Corpuscular Hemoglobin Concent 33.8 32.0-36.0 g/dL Red Cell Distribution Width 13.5 11.8-14.3 % Platelet Count 240 140-450 10^3/uL Mean Platelet Volume 8.1 6.9-10.8 fL Neutrophils (%) (Auto) 84.1 H 37.0-80.0 % Lymphocytes (%) (Auto) 13.3 10.0-50.0 % Monocytes (%) (Auto) 2.4 0.0-12.0 % Eosinophils (%) (Auto) 0.0 0.0-7.0 % Basophils (%) (Auto) 0.2 0.0-2.0 % Neutrophils # (Auto) 11.7 H 1.6-8.6 10 ^3/uL Lymphocytes # (Auto) 1.8 0.4-5.4 10 ^3/uL Monocytes # (Auto) 0.3 0-1.3 10 ^3/uL Eosinophils # (Auto) 0 0-0.8 10 ^3/uL Basophils # (Auto) 0 0-0.2 10 ^3/uL Nucleated Red Blood Cells 0.1 % Sodium Level 137 136-145 mmol/L Potassium Level 4.1 3.5-5.1 mmol/L Chloride Level 101 98-107 mmol/L Carbon Dioxide Level 26 20-31 mmol/L Anion Gap 10 5-15 Blood Urea Nitrogen 9 9-23 mg/dL Creatinine 0.74 0.550-1.02 mg/dL Glomerular Filtration Rate Calc 85 >90 mL/min BUN/Creatinine Ratio 12.2 10.0-20.0 Serum Glucose 179 H 74-106 mg/dL Hemoglobin A1c 6.8 H <5.7 % A1C Calcium Level 9.7 8.7-10.4 mg/dL Magnesium Level 2.1 1.6-2.6 mg/dL Total Bilirubin 0.5 0.2-1.0 mg/dL Aspartate Amino Transferase (AST) 15 13-40 U/L Alanine Aminotransferase (ALT) 17 7-40 U/L Alkaline Phosphatase 72 46-116 U/L Total Protein 7.6 5.7-8.2 g/dL Albumin 4.2 3.2-4.8 g/dL Thyroid Stimulating Hormone (TSH) 0.29 L 0.55-4.78 uIU/mL Test 11/11/25 07:56 11/11/25 07:30 Range/Units Urine Color Light-yellow Yellow Urine Clarity Clear Clear Urine pH 5.5 5.0-9.0 Urine Specific [place] 1.014 1.001-1.035 Urine Protein Negative Negative Urine Ketones Negative Negative Urine Blood Negative Negative /uL Urine Nitrite Negative Negative Urine Bilirubin Negative Negative Urine Urobilinogen Normal Negative mg/dL Urine Leukocyte Esterase Negative Negative /uL Urine RBC None seen 0 - 4 /hpf Urine Microscopic WBC < 1 0-5 /HPF Urine Squamous Epithelial Cells Few <5 /hpf Urine Bacteria None seen None Seen /hpf Urine Glucose Normal Normal mg/dL B-Type Natriuretic Peptide 11.09 0-100 pg/mL Assessment Right hand numbness and weakness. Hypertensive urgency. Lower extremity weakness. COPD exacerbation. Tobacco use. History of shingles. Plan/Recommendation I agree with your ongoing assessment and care of plan. Echocardiogram. Amlodipine. IV antibiotics as ordered. DVT and GI prophylactics. IV Hydralazine for SBP >150. Losartan. Additional plan as per the hospital course. A total of 45 minutes was spent reviewing the patient record, examining the patient, making a diagnostic and therapeutic plan, discussing this plan with medical personnel, following up on diagnostic studies and following the patient for clinical stability excluding any and all procedures. At least 50% of this time was spent in direct, [id number] contact. Plan discussed with: Patient ELISSA GEORGE MD Nov 12, 2025 23:08
[2025-11-13] VITALS (10 sets, daily range): BP systolic 145–183; BP diastolic 72–81; PULSE 69–91; RESP 16–18; TEMP 97.6–98.2; O2SAT 94–99
[2025-11-13 06:53] LABS: Hematocrit 47.1 % (36.0-46.0); Hemoglobin 15.6 g/dL (12.2-16.2); Mean Corpuscular Hemoglobin 30.2 pg (28.0-32.0); Mean Corpuscular Volume 91.1 fL (80.0-100.0); Nucleated Red Blood Cells % 0.0 %
[2025-11-13 07:12] LABS: Chloride 98 mmol/L (98-107); Potassium 3.9 mmol/L (3.5-5.1); Sodium 137 mmol/L (136-145)
[2025-11-13 07:13] LABS: Anion Gap 10 (5-15); Calcium 9.6 mg/dL (8.7-10.4); Carbon Dioxide 29 mmol/L (20-31)
[2025-11-13 07:18] LABS: BUN/Creatinine Ratio 20.9 (10.0-20.0); Blood Urea Nitrogen 18 mg/dL (9-23); Magnesium 2.3 mg/dL (1.6-2.6)
[2025-11-13 07:22] LABS: Glucose 220 mg/dL (74-106)
--- NOTE | 2025-11-13 07:49 | ECG ---
[facility] Test Date: 2025-11-12 Test Time: 13:50:49 Pat Name: MARISA STANFORD Department: Room: 0220 A Gender: F Youth Leader: SALOMON : 1950 Requested By: HAKAN RUBALCAVA Order Number: [id number] Reading MD: Measurements Intervals [place] Rate: 84 P: 52 ME: 177 QRS: 45 QRSD: 85 T: 56 QT: 392 QTc: 464 Interpretive Statements Sinus rhythm Borderline ST elevation, anterior leads Please click the below link to view image of tracing.
--- NOTE | 2025-11-13 08:04 | ECG ---
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
[2025-11-13] MEDS ORDERED: AZITHROMYCIN 250 MG TAB PO SCH (10:00)
[2025-11-13] MEDS ORDERED: GABA-1250 PO (11:21)
[2025-11-13] MEDS ORDERED: PRED20TA2 PO (11:21)
[2025-11-13] MEDS ORDERED: AML5T PO (11:21)
[2025-11-13] MEDS ORDERED: LOSA-534 PO (11:21)
[2025-11-13] MEDS ORDERED: DOXY1CAP58 PO (11:21)
[2025-11-13] MEDS: LOSARTAN POTASSIUM 25 MG TAB PO ONE (12:02)
[2025-11-13 12:16] LABS: Free T3 2.63 pg/mL (2.3-4.2)
[2025-11-13 12:17] LABS: Free T4 (Free Thyroxine) 1.03 ng/dL (0.89-1.76)
[2025-11-13] MEDS ORDERED: ALBUAER3 IN (13:20)
--- NOTE | 2025-11-13 13:55 | DVHDSRES ---
Discharge Summary Date of Admission Resident Creating Document: LIZBETH PAIGE RESIDENT Nov 11, 2025 at 10:25 Date of Discharge: Nov 13, 2025 Admitting Diagnosis Suspected cervical radiculopathy Labs/Diagnostic Data: Laboratory Results Test 11/13/25 05:08 11/12/25 17:45 11/12/25 06:51 11/12/25 05:51 White Blood Count 20.5 10^3/uL (4.4-10.8) Red Blood Count 5.17 10^6/uL (4.0-5.20) Hemoglobin 15.6 g/dL (12.2-16.2) Hematocrit 47.1 % (36.0-46.0) Mean Corpuscular Volume 91.1 fL (80.0-100.0) Mean Corpuscular Hemoglobin 30.2 pg (28.0-32.0) Mean Corpuscular Hemoglobin Concent 33.2 g/dL (32.0-36.0) Red Cell Distribution Width 13.6 % (11.8-14.3) Platelet Count 246 10^3/uL (140-450) Mean Platelet Volume 8.5 fL (6.9-10.8) Neutrophils (%) (Auto) 88.7 % (37.0-80.0) Lymphocytes (%) (Auto) 8.1 % (10.0-50.0) Monocytes (%) (Auto) 3.1 % (0.0-12.0) Eosinophils (%) (Auto) 0.0 % (0.0-7.0) Basophils (%) (Auto) 0.1 % (0.0-2.0) Neutrophils # (Auto) 18.2 10 ^3/uL (1.6-8.6) Lymphocytes # (Auto) 1.7 10 ^3/uL (0.4-5.4) Monocytes # (Auto) 0.6 10 ^3/uL (0-1.3) Eosinophils # (Auto) 0 10 ^3/uL (0-0.8) Basophils # (Auto) 0 10 ^3/uL (0-0.2) Nucleated Red Blood Cells 0.0 % Sodium Level 137 mmol/L (136-145) Potassium Level 3.9 mmol/L (3.5-5.1) Chloride Level 98 mmol/L (98-107) Carbon Dioxide Level 29 mmol/L (20-31) Anion Gap 10 (5-15) Blood Urea Nitrogen 18 mg/dL (9-23) Creatinine 0.86 mg/dL (0.550-1.02) Glomerular Filtration Rate Calc 71 mL/min (>90) BUN/Creatinine Ratio 20.9 (10.0-20.0) Serum Glucose 220 mg/dL (74-106) Calcium Level 9.6 mg/dL (8.7-10.4) Magnesium Level 2.3 mg/dL (1.6-2.6) Troponin I High Sensitivity 9 ng/L (</=34) Vitamin B12 Level 429 pg/mL (211-911) Folic Acid 13.42 ng/mL (>5.38) Free Thyroxine (T4) Calculated 1.03 ng/dL (0.89-1.76) Free Triiodothyronine (T3) pg/mL 2.63 pg/mL (2.3-4.2) Vitamin D 25-Hydroxy 12.0 ng/mL (30.0-100) Test 11/12/25 05:31 11/11/25 07:56 11/11/25 07:30 Hemoglobin A1c 6.8 % A1C (<5.7) Total Bilirubin 0.5 mg/dL (0.2-1.0) Aspartate Amino Transferase (AST) 15 U/L (13-40) Alanine Aminotransferase (ALT) 17 U/L (7-40) Alkaline Phosphatase 72 U/L (46-116) Total Protein 7.6 g/dL (5.7-8.2) Albumin 4.2 g/dL (3.2-4.8) Thyroid Stimulating Hormone (TSH) 0.29 uIU/mL (0.55-4.78) Urine Color Light-yellow (Yellow) Urine Clarity Clear (Clear) Urine pH 5.5 (5.0-9.0) Urine Specific [place] 1.014 (1.001-1.035) Urine Protein Negative (Negative) Urine Ketones Negative (Negative) Urine Blood Negative /uL (Negative) Urine Nitrite Negative (Negative) Urine Bilirubin Negative (Negative) Urine Urobilinogen Normal mg/dL (Negative) Urine Leukocyte Esterase Negative /uL (Negative) Urine RBC None seen /hpf (0 - 4) Urine Microscopic WBC < 1 /HPF (0-5) Urine Squamous Epithelial Cells Few /hpf (<5) Urine Bacteria None seen /hpf (None Seen) Urine Glucose Normal mg/dL (Normal) B-Type Natriuretic Peptide 11.09 pg/mL (0-100) Other Laboratory Tests 11/13/25 05:08 Brief Hx & Hospital Course: 74-year-old female with a past medical history of hypertension, COPD, asthma, shingles came in with a chief complaint of tingling and numbness that has been ongoing for more than 1 week, with high blood pressure 220/1 20s. Patient was given amlodipine 5 mg and losartan 25 mg and blood pressure was monitored during her hospitalization. For tingling and numbness we ruled out acute stroke and CT head was done which was negative. CT scan of the cervical region without contrast showed no evidence of acute cervical spine fracture or traumatic malalignment. Moderate multilevel degenerative changes throughout the cervical spine was noted and Neurology was consulted. Neurology suggested this could be possibly carpal tunnel syndrome and an outpatient MRI has been suggested which the patient needs to follow up with Neurology. Echo shows ejection fraction of 65%. patient also had acute exacerbation of COPD seen on chest x-ray with a low flat diaphragm. Troponins were within normal limits and we gave the patient nebulizations. Patient also was given methylprednisolone daily and IV antibiotics doxycycline and ceftriaxone was continued. Due to the steroid patient also had leukocytosis which was monitored. Due to new onset change in EKG troponin levels were repeated which were normal and Cardiology was consulted. Echo was done which showed ejection fraction 65% with mild diastolic dysfunction. We increased the patient's antihypertensive medication amlodipine from 5-10 mg. Patient is feeling much better and is stable for discharge. We have counseled her that she is to take her antihypertensive medications amlodipine 10 mg and that losartan 50 mg is to be continued as well. Patient needs to take 5 days of prednisolone 40 mg for her COPD and doxycycline 100 mg twice a day for 5 more days as well. Since patient reported running out of albuterol medication , inhaler albuterol PRN has been prescribed for her. Patient and family have communicated understanding and patient is to follow up with the primary care physician in 1 week as well as Neurology for outpatient MRI. Patient is being discharged. Pt is lying on bed General Appearance: Alert, Oriented X3, Cooperative, Not in acute distress HEENT: Atraumatic, Mucous membranes moist/pink Respiratory: Clear to auscultation, Normal air movement, No added sounds Cardiovascular: Regular rate, Normal S1, Normal S2, No murmurs Abdominal: Active bowel sounds, Soft, no distention, no tenderness Extremities: No edema, Normal pulses, No tenderness/swelling Skin: No Significant rash, except past surgical scars Neuro: Normal speech, sensorimotor deficits none Psych/Mental Status: Mental status NL, Mood NL Nurse was there as head of talent management during examination Operations or Procedures Chest x-ray IMPRESSION: 1. No evidence of acute disease in the chest. 2. Findings described above suggesting a emphysematous changes in the appropriate clinical setting. CT head without contrast IMPRESSION: No CT evidence of acute intracranial abnormality. cervical CT without contrast IMPRESSION: 1. No evidence of acute cervical spine fracture or traumatic malalignment. 2. Moderate multilevel degenerative changes throughout the cervical spine. Consider correlation with cervical spine MRI. All CT scans at this medical facility are performed using dose modulation techniques as appropriate to a performed exam including the following: Automated exposure control was utilized; adjustment of the MA and/or KV according to patient size; and use of iterative reconstruction technique. PROCEDURE(s): CERV2 - CERVICAL SPINE 3V REASON: Spondylosis/radiculopathy/fracture ORDER NUMBER(s): [id number], ACCESSION NUMBER(s): [id number] FINDINGS/IMPRESSION: Lateral film demonstrates C1 through C5. There are no compressed vertebra and. The prevertebral soft tissues appear normal. There appears to be some straightening of the normal cervical lordotic curve C1 through C5 is may be secondary to patient positioning or muscle spasm. If vertebral detail below C5 is of clinical concern recommend CT of the cervical spine. There is 1 additional image of the cervical spine which shows satisfactory alignment however image is severely rotated and bony detail is limited. Condition at Discharge: Stable Final Diagnosis/Problems List #Acute exacerbation of COPD # suspected carpal tunnel syndrome #hypertensive emergency #Ruled out acute stroke #Suspected cervical radiculopathy/myelopathy #reactive leukocytosis Discharge Disposition: Home Discharge Instruct/Medications Diet: Consistent carbohydrate, Cardiac 2g Na,low cholest Activity: No Restrictions, As Tolerated Follow Up/Referral: PCP Cardiology Medications: Doxycycline 100 mg 2 times daily for 5 days prednisolone 40 mg daily once for 5 days Losartan 50 mg daily 1 times Amlodipine 10 mg daily 1 time Scheduled Amlodipine Besylate (Norvasc Tablet), 10 MG PO DAILY Doxycycline (Monohydrate) (Doxycycline), 100 MG PO BID Gabapentin (Gabapentin), 300 MG PO BID Losartan Potassium (Losartan Potassium), 50 MG PO DAILY Prednisone (Prednisone), 40 MG PO DAILY Scheduled PRN Albuterol Sulfate (Ventolin Mdi), 90 MCG IN PRN PRN Discharge Statement: "Patient was advised to return to the ER or call 911 if any headaches, dizziness, shortness of breath, chest pain, abdominal pain, bleeding, fevers, or worsening of medical condition. Patient was counseled about treatment plan, medications, possible side effects, patientverbalized understanding. All questions were answered to the best of my ability. This discharge took greater then 30 minutes in planning, reviewing documentation, counseling the patient, and discussing with other team members." ASSESSMENT ASSESSMENT Assessment Acute exacerbation of COPD Bilateral upper extremity tingling and numbness likely carpal tunnel Visit Coding STANDARD RES Billing Provider: MEENU HIGGINS MD Date of Service if different f: Nov 13, 2025 Common Visit Codes: 24834-KYW/OBS DISCH DAY >30min LIZBETH PAIGE RESIDENT Nov 13, 2025 13:55 MEENU HIGGINS MD Nov 14, 2025 18:47
--- NOTE | 2025-11-14 01:02 | DVHPN2 ---
Progress Note - Dictate Date Seen: Nov 13, 2025 Medical Necessity Reason Pt with a Central, PICC or Fol: No Subjective Patient was seen and evaluated in follow up. No overnight events. Echocardiogram. shows LV EF of 65%. Patient is cardiac stable for discharge. Telemetry reviewed. vital signs Vital Sign Date Time Temp Pulse Resp B/P (MAP) Pulse Ox O2 Delivery O2 Flow Rate FiO2 11/13/25 15:56 98.1 78 17 145/74 (97) 96 98.1 11/13/25 11:19 Room Air* 0 21 21 Total Intake and Output 11/13/25 11/13/25 11/14/25 15:00 23:00 07:00 Intake Total 150 ml Balance 150 ml medications Current Medications Medications Dose Ordered Sig/Hai Route Start Time Stop Time Status Last Admin Dose Admin Albuterol 2.5 mg Q4HR NEB 11/11/25 14:00 UNV Ipratropium [place] 0.5 mg Q4HR NEB 11/11/25 14:00 UNV objective GENERAL: Alert and oriented x 3. No acute distress. EYES: PERRL, EOMI. Anicteric. HENT: Moist mucous membranes. LUNGS: Clear to auscultation bilaterally. CARDIOVASCULAR: Regular rate and rhythm. ABDOMEN: Soft, nontender and nondistended. EXTREMITIES: No edema. NEUROLOGIC: No focal neurological deficits. SKIN: Warm, dry. laboratory and microbiology Laboratory Tests 11/13/25 05:08 Test 11/13/25 05:08 Range/Units Serum Glucose 220 H 74-106 mg/dL Problem List Right hand numbness and weakness. Hypertensive urgency. Lower extremity weakness. COPD exacerbation. Tobacco use. History of shingles. Assessment/Plan Continued all current supportive medical care. Amlodipine, Losartan. IV antibiotics as ordered. DVT and GI prophylactics. IV Hydralazine for SBP >150. Additional plan as per the hospital course. Plan discussed with: Patient ELISSA GEORGE MD Nov 14, 2025 01:02
== END 2025-11-13 16:27 | disposition home or self-care (01) | DRG 74 ==
LOC: ER 07:01 → OVERFLOW 10:25 → CENTRAL 15:09
PROVIDERS: ADMIT Internal Medicine Geriatric Medicine; ATTEND Internal Medicine Geriatric Medicine
DX: G56.03 Carpal tunnel syndrome, bilateral upper limbs (principal); G95.89 Other specified diseases of spinal cord; I16.1 Hypertensive emergency; J44.1 Chronic obstructive pulmonary disease with (acute) exacerbation; J45.901 Unspecified asthma with (acute) exacerbation; F17.200 Nicotine dependence, unspecified, uncomplicated; Z86.19 Personal history of other infectious and parasitic diseases; T38.0X5A Adverse effect of glucocorticoids and synthetic analogues, initial encounter; Z79.899 Other long term (current) drug therapy; Y92.89 Other specified places as the place of occurrence of the external cause
CPT/HCPCS: 36415; 70450; 71045; 72040; 72125; 80048; 80053; 81001; 82306; 82607; 82746; 83036; 83735; 83880; 84439; 84443; 84481; 84484; 85025; 93005; 93306; 94640; 97110; 97116; 97163; 97530; 99291; G0378; J2470